=== PATIENT | male | born 1955 | race Caucasian/White ===

== ENCOUNTER 2017-04-13 07:56 | Emergency (ER) | payer SELFPAY ==
[2017-04-13 08:07] VITALS: BP 153/77; PULSE 68; TEMP 98.1; BMI 26.6
--- NOTE | 2017-04-13 09:08 | PDOC ---
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 Multiple sites noted, no surrounding erythema or induration. Past Medical History: Denies. Allergies: No known allergies Medications: On Family History: Non-contributory Social History: Denies smoking, alcohol use, or IVDU Review of Systems GENERAL/CONSTITUTIONAL: No fever or chills. No weakness. No weight change. HEAD, EYES, EARS, NOSE AND THROAT: No change in vision. No ear pain or discharge. No sore throat. CARDIOVASCULAR: No chest pain or shortness of breath. RESPIRATORY: No cough, wheezing, or hemoptysis. GASTROINTESTINAL: No nausea, vomiting, diarrhea or constipation. No rectal bleeding. GENITOURINARY: No dysuria, frequency, or change in urination. MUSCULOSKELETAL: No joint or muscle swelling or pain. No neck or back pain. SKIN: No rash or easy bruising. Raised, erythematous pruritic lesions to right lateral upper arm, axilla, right lateral torso. NEUROLOGIC: No headache, vertigo, loss of consciousness, or loss of sensation. HEMATOLOGIC/LYMPHATIC: No anemia, easy bleeding, or history of blood clots. No Lymphadenopathy ALLERGIC/IMMUNOLOGIC: No hives or skin allergy. No latex allergy. Physical Exam: GENERAL: The patient is awake, alert, and fully oriented, in no acute distress. EYES: Pupils equal, round and reactive to light, extraocular movements intact, sclera anicteric, conjunctiva clear. ENT: Ears normal, nares patent, oropharynx clear without exudates. Moist mucous membranes. No uvula deviation NECK: Normal range of motion, supple without lymphadenopathy, JVD, or masses. LUNGS: Breath sounds equal, clear to auscultation bilaterally. No wheezes, and no crackles. HEART: Regular rate and rhythm, normal S1 and S2 without murmur, rub or gallop. ABDOMEN: Soft, nontender, normoactive bowel sounds. No guarding, no rebound. No masses. No bruising or abrasions MUSCULOSKELETAL: Normal range of motion, no edema. No clubbing or cyanosis. No cords, erythema, or tenderness. No CVA Tenderness with fist. NEUROLOGICAL: Cranial nerves II through XII grossly intact. Normal speech, normal gait. SKIN: Warm, Dry, normal turgor, erythematous pruritic, macular well, defines nadine with central punctum to the right lateral torso Past History - Past Medical History Allergies/Adverse Reactions: Allergies Allergy/AdvReac Type Severity Reaction Status Date / Time No Known Allergies Allergy Verified 04/13/17 08:04 Home Medications: Ambulatory Orders Hydrocortisone 2.5% Lotion [Hytone 2.5% Lotion -] 1 applic TP BID #1 bottle Other medical history: DENIES. - Psycho/Social/Smoking Cessation Hx Suicidal Ideation: No Smoking History: Current every day smoker Have you smoked in the past 12 months: Yes Number of Cigarettes Smoked Daily: 5 Information on smoking cessation initiated: No Hx Alcohol Use: No Drug/Substance Use Hx: No Substance Use Type: None *Physical Exam - Vital Signs Last Vital Signs Temp Pulse Resp BP Pulse Ox 98.1 F 68 19 153/77 98 04/13/17 08:04 04/13/17 08:04 04/13/17 08:04 04/13/17 08:04 04/13/17 08:04 Medical Decision Making - Medical Decision Making 04/13/17 15:59 A/P: Patient with multiple pruritic lesions, consistent with bug bites. Areas are not cellulitic. There is no surrounding erythema, warmth or induration. We' ll DC patient home on Hytone, follow-up with dermatology as needed. *DC/Admit/Observation/Transfer Diagnosis at time of Disposition: Rash and nonspecific skin eruption - Discharge Dispostion Disposition: HOME Condition at time of disposition: Good Admit: No - Prescriptions Prescriptions: Hydrocortisone 2.5% Lotion [Hytone 2.5% Lotion -] 1 applic TP BID #1 bottle - Referrals Referrals: Mumtaz Matson [Non Staff, Medical] - - Patient Instructions Additional Instructions: Please keep area clean and dry. Apply lotion twice a day as needed if symptoms get increased red, warm, if fever develops, or any other concerns return to ER
== END 2017-04-13 09:17 | disposition home or self-care (01) ==
LOC: JERFT 07:56
DX: R21 Rash and other nonspecific skin eruption (principal)
CPT/HCPCS: 99281-25

== ENCOUNTER 2018-10-09 08:03 | Emergency (ER) | payer SELFPAY ==
[2018-10-09 08:20] VITALS: BP 151/76; PULSE 76; TEMP 98.3; BMI 26.6
--- NOTE | 2018-10-09 08:48 | PDOC ---
History of Present Illness - General Chief Complaint: Urinary Problem Stated Complaint: URINARY PROBLEM Time Seen by Provider: 10/09/18 08:35 History Source: Patient Exam Limitations: No Limitations - History of Present Illness Travel History: No Initial Comments: 10/09/18 09:43 came to emergency department for evaluation of urinary frequency. States onset was yesterday and had to get up 6-7 times last night to urinate. Denies pain or burning with void, denies any bleeding, denies any lesions or ulcerations to penis or scrotum. Has had no problems with urine or frequency in the past. No history of diabetes or STDs. Timing/Duration: reports: getting worse Quality: reports: mild, moderate Abdominal Pain Onset Location: reports: suprapubic Pain Radiation: reports: no radiation Activities at Onset: reports: none Alleviating Factors: improves with: None Past History - Travel Traveled outside of the country in the last 30 days: No Close contact w/someone who was outside of country & ill: No - Past Medical History Allergies/Adverse Reactions: Allergies Allergy/AdvReac Type Severity Reaction Status Date / Time No Known Allergies Allergy Verified 10/09/18 08:17 Home Medications: Ambulatory Orders NK [No Known Home Medication] 10/09/18 COPD: No CHF: No - Immunization History Immunization Up to Date: Yes - Suicide/Smoking/Psychosocial Hx Smoking History: Never smoked Have you smoked in the past 12 months: Yes Number of Cigarettes Smoked Daily: 5 Information on smoking cessation initiated: No Hx Alcohol Use: No Drug/Substance Use Hx: No Substance Use Type: None Review of Systems - Review of Systems Able to Perform ROS?: Yes Is the patient limited [place] proficient: Yes Constitutional: Yes: Symptoms Reported, See HPI, Malaise HEENTM: Yes: Symptoms Reported, See HPI Respiratory: Yes: Symptoms reported : Yes: Symptoms Reported, See HPI, Frequency, Urgency. No: Burning, Dysuria, Discharge, Flank Pain, Hematuria, Testicular Mass, Testicular Swelling Musculoskeletal: No: Symptoms Reported Integumentary: No: Symptoms Reported Neurological: No: Symptoms reported All Other Systems: Reviewed and Negative *Physical Exam - Vital Signs Last Vital Signs Temp Pulse Resp BP Pulse Ox 98.3 F 76 15 151/76 98 10/09/18 08:17 10/09/18 08:17 10/09/18 08:17 10/09/18 08:17 10/09/18 08:17 - Physical Exam General Appearance: Yes: Nourished, Appropriately Dressed. No: Apparent Distress HEENT: positive: NICKY, Normal ENT Inspection, TMs Normal, Pharynx Normal Neck: positive: Supple. negative: Tender Respiratory/Chest: positive: Lungs Clear Gastrointestinal/Abdominal: positive: Normal Bowel Sounds, Tender (mild suprapubic tenderness. ), Soft. negative: Distended, Guarding, Rebound Musculoskeletal: negative: CVA Tenderness (R), CVA Tenderness (L) Extremity: positive: Normal Capillary Refill, Normal Inspection, Normal Range of Motion Integumentary: positive: Normal Color, Dry, Warm Neurologic: positive: therapy teacher II-XII NML intact, Fully Oriented, Alert, Normal Mood/ Affect, Normal Response, Motor Strength 5/5 Moderate Sedation - Procedure Monitoring Vital Signs: Procedure Monitoring Vital Signs Temperature 98.3 F 10/09/18 08:17 Pulse Rate 76 10/09/18 08:17 Respiratory Rate 15 10/09/18 08:17 Blood Pressure 151/76 10/09/18 08:17 O2 Sat by Pulse Oximetry (%) 98 10/09/18 08:17 *DC/Admit/Observation/Transfer Diagnosis at time of Disposition: Urinary frequency - Discharge Dispostion Disposition: HOME Condition at time of disposition: Stable Decision to Admit order: No - Referrals Referrals: Lam Gonzalez MD [Staff Physician] - - Patient Instructions Additional Instructions: Rest, drink lots of fluids: Teas, water, soups Avoid contact with others until fevers and symptoms resolved Lots of handwashing and good hygiene Continue [id number] medications for symptomatic relief Tylenol or Motrin for fever and pain Followup with private physician in one week for repeat urinalysis/reevaluation See Urologist for specialized testing for prostate and bladder. Return to emergency department for worsened symptoms, fevers, dehydration - Post Discharge Activity Forms/Work/School Notes: Back to Work
[2018-10-09 09:05] LABS: URINE APPEARANCE CLEAR; URINE BILIRUBIN NEGATIVE (<2.0 mg/dL); URINE COLOR STRAW; URINE GLUCOSE (UA) NEGATIVE (NEGATIVE); URINE KETONE NEGATIVE (NEGATIVE); URINE LEUK ESTERASE NEGATIVE (NEGATIVE); URINE NITRITE NEGATIVE (NEGATIVE); URINE PROTEIN NEGATIVE (NEGATIVE); URINE UROBILINOGEN NEGATIVE mg/dL (0.2-1.0)
== END 2018-10-09 09:37 | disposition home or self-care (01) ==
LOC: JER 08:03 → JERFT 08:03
DX: R35.0 Frequency of micturition (principal)
CPT/HCPCS: 81003; 87086; 99281-25

== ENCOUNTER 2019-01-02 12:30 | Emergency (ER) | payer SELFPAY ==
[2019-01-02 12:36] VITALS: BP 139/76; PULSE 89; TEMP 98.5; BMI 26.6
--- NOTE | 2019-01-02 13:17 | PDOC ---
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 He has blurry vision and tearing. Past History - Past Medical History Allergies/Adverse Reactions: Allergies Allergy/AdvReac Type Severity Reaction Status Date / Time No Known Allergies Allergy Verified 01/02/19 12:35 Home Medications: Ambulatory Orders Tobramycin 0.3% Ophth Soln [Tobrex Ophthalmic Solution -] 1 drop OU Q4HWA #1 bottle 01/02/19 COPD: No CHF: No - Immunization History Immunization Up to Date: Yes - Suicide/Smoking/Psychosocial Hx Smoking History: Never smoked Have you smoked in the past 12 months: Yes Number of Cigarettes Smoked Daily: 5 Hx Alcohol Use: No Drug/Substance Use Hx: No Substance Use Type: None Review of Systems - Review of Systems Constitutional: No: Fever HEENTM: Yes: Blurred Vision, Tearing *Physical Exam - Vital Signs Last Vital Signs Temp Pulse Resp BP Pulse Ox 98.5 F 89 18 139/76 99 01/02/19 12:32 01/02/19 12:32 01/02/19 12:32 01/02/19 12:32 01/02/19 12:32 - Physical Exam Comments: 01/02/19 13:14 HEAD: NC/AT EYES: Conjuntiva injected. Anesthetized with tetracaine then stained with fluorescein reexamined no identification of foreign body or corneal abrasion Ears: Canals and TM's normal NOSE: No d/c NEUROLOGIC: No gross sensory or motor deficits, NVID SKIN: Normal color and temperature no lesions or rashes Medical Decision Making - Medical Decision Making 01/02/19 13:14 I suspect and expelled foreign body this is a conjunctivitis I do not appreciate a corneal abrasion. I will place month tobramycin drops and have him follow-up with ophthalmology *DC/Admit/Observation/Transfer Diagnosis at time of Disposition: Acute conjunctivitis of both eyes - Discharge Dispostion Disposition: HOME Condition at time of disposition: Stable Decision to Admit order: No - Referrals Referrals: Merari Fuller MD [Staff Physician] - - Patient Instructions Printed Discharge Instructions: Conjunctivitis, DI for Conjunctivitis Additional Instructions: Please use the antibiotic drops as directed. Return to the emergency room for worsening symptoms and follow-up with ophthalmology in one to 2 days for further evaluation and treatment options - Post Discharge Activity
== END 2019-01-02 13:37 | disposition home or self-care (01) ==
LOC: JERFT 12:30
DX: H10.33 Unspecified acute conjunctivitis, bilateral (principal)
CPT/HCPCS: 99281-25

== ENCOUNTER 2019-01-20 11:36 | Emergency (ER) | payer SELFPAY ==
[2019-01-20 11:45] VITALS: BP 155/60; PULSE 77; TEMP 98.6; BMI 34.3
[2019-01-20] MEDS ORDERED: IBUPROFEN 600 MG TABLET (FP) PO ONE (12:34)
--- NOTE | 2019-01-20 14:02 | PDOC ---
History of Present Illness - General Chief Complaint: Pain, Acute Stated Complaint: RT KNEE PAIN Time Seen by Provider: 01/20/19 12:14 History Source: Patient - History of Present Illness Initial Comments: 01/20/19 13:28 63 year old male c/o Right knee pain. 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 Patient has been rubbing Capsacin oil to the site no improvement in pain. Patient reports pain in movement. Past History - Past Medical History Allergies/Adverse Reactions: Allergies Allergy/AdvReac Type Severity Reaction Status Date / Time No Known Allergies Allergy Verified 01/02/19 12:35 Home Medications: Ambulatory Orders Ibuprofen 600 mg PO QID PRN #20 tablet 01/20/19 COPD: No CHF: No - Immunization History Immunization Up to Date: Yes - Suicide/Smoking/Psychosocial Hx Smoking History: Current every day smoker Have you smoked in the past 12 months: Yes Number of Cigarettes Smoked Daily: 5 Information on smoking cessation initiated: No Hx Alcohol Use: No Drug/Substance Use Hx: No Substance Use Type: None Review of Systems - Review of Systems Able to Perform ROS?: Yes Is the patient limited [place] proficient: No Constitutional: Yes: Loss of Appetite Musculoskeletal: Yes: Other (right knee pain) *Physical Exam - Vital Signs Last Vital Signs Temp Pulse Resp BP Pulse Ox 98.6 F 77 16 155/60 99 01/20/19 11:41 01/20/19 11:41 01/20/19 11:41 01/20/19 11:41 01/20/19 11:41 - Physical Exam General Appearance: Yes: Appropriately Dressed Musculoskeletal: positive: Normal Inspection, Other (able leg raise ) Extremity: positive: Normal Capillary Refill, Normal Inspection, Normal Range of Motion Integumentary: positive: Normal Color, Dry, Warm Neurologic: positive: Fully Oriented, Alert, Normal Mood/Affect ED Treatment Course - RADIOLOGY Radiology Studies Ordered: Category Date Time Status KNEE 2 POS-RIGHT [RAD] Stat Radiology 01/20/19 12:32 Taken - Medications Given in the ED: ED Medications Discontinued Medications Generic Name Dose Route Start Last Admin Trade Name Freq PRN Reason Stop Dose Admin Ibuprofen 600 mg 01/20/19 12:34 01/20/19 12:39 Motrin - PO 01/20/19 12:35 600 mg ONCE ONE Administration Progress Note - Progress Note Progress Note: A: right knee pain P: Nsaids xray *DC/Admit/Observation/Transfer Diagnosis at time of Disposition: Knee pain, right anterior Joint effusion of knee Qualifiers: Laterality: right Qualified Code(s): M25.461 - Effusion, right knee - Discharge Dispostion Disposition: HOME Condition at time of disposition: Stable - Prescriptions Prescriptions: Ibuprofen 600 mg PO QID PRN #20 tablet PRN Reason: Pain - Referrals Referrals: Hernandez Mccann DO [Staff Physician] - - Patient Instructions Printed Discharge Instructions: DI for Knee Effusion Additional Instructions: take ibuprofen every 6 hours as needed for pain follow up with an orthopedic as soon as possible. rest, elevate your legs/ Additional Instructions: * Please call your personal physician to report your Emergency Department visit and to report your progress, if any. * If there is no improvement in symptoms in 2 days call your physician. * Return to the Emergency Department for any worsening symptoms. - Post Discharge Activity Forms/Work/School Notes: Back to Work
== END 2019-01-20 14:53 | disposition home or self-care (01) ==
LOC: JERFT 11:36
DX: M25.461 Effusion, right knee (principal); M25.561 Pain in right knee; X50.0XXA Overexertion from strenuous movement or load, initial encounter; Y93.H3 Activity, building and construction; Y92.69 Other specified industrial and construction area as the place of occurrence of the external cause; Y99.0 Civilian activity done for income or pay
CPT/HCPCS: 73560-TC-RT-FY; 99281-25

== ENCOUNTER 2019-01-30 11:08 | Emergency (ER) | payer SELFPAY ==
[2019-01-30 11:16] VITALS: BP 174/80; PULSE 70; TEMP 97.5; BMI 29.5
[2019-01-30] MEDS ORDERED: KETOROLAC TROMETHAMINE 60 MG/2 ML VIAL IM ONE (11:48)
[2019-01-30] MEDS ORDERED: KETOROLAC TROMETHAMINE 60 MG/2 ML VIAL ONE (11:55)
--- NOTE | 2019-01-30 12:44 | PDOC ---
History of Present Illness - General Chief Complaint: Edema Stated Complaint: RT LEG PAIN Time Seen by Provider: 01/30/19 11:26 History Source: Patient - History of Present Illness Occurred: reports: last week Severity: Yes: severe Lower Extremity Pain Location: right: other (R thigh) Past History - Past Medical History Allergies/Adverse Reactions: Allergies Allergy/AdvReac Type Severity Reaction Status Date / Time No Known Allergies Allergy Verified 01/30/19 11:13 Home Medications: Ambulatory Orders Ibuprofen 600 mg PO QID PRN #20 tablet 01/20/19 COPD: No CHF: No - Immunization History Immunization Up to Date: Yes - Suicide/Smoking/Psychosocial Hx Smoking History: Never smoked Have you smoked in the past 12 months: Yes Number of Cigarettes Smoked Daily: 5 Hx Alcohol Use: No Drug/Substance Use Hx: No Substance Use Type: None Review of Systems - Review of Systems Constitutional: No: Chills, Fever Respiratory: No: Shortness of Breath Cardiac (ROS): No: Chest Pain, Palpitations *Physical Exam - Vital Signs Last Vital Signs Temp Pulse Resp BP Pulse Ox 97.5 F L 70 18 174/80 H 99 01/30/19 11:14 01/30/19 11:14 01/30/19 11:14 01/30/19 11:14 01/30/19 11:14 - Physical Exam General Appearance: Yes: Appropriately Dressed, Mild Distress HEENT: positive: Normal Voice Neck: positive: Supple Respiratory/Chest: positive: Lungs Clear, Normal Breath Sounds. negative: Respiratory Distress Cardiovascular: positive: Regular Rate, S1, S2 Gastrointestinal/Abdominal: positive: Soft. negative: Tender Extremity: positive: Other (significant varicosities to RLE, most notably to medial R thigh where there is significant venous enorgement w/ ttp, no erythema or induration) Integumentary: positive: Dry, Warm Neurologic: positive: Fully Oriented, Alert, Normal Mood/Affect ED Treatment Course - RADIOLOGY Radiology Studies Ordered: Category Date Time Status DUPLEX VASCUL US-1 LEG [US] Stat Ultrasound 01/30/19 11:48 Completed - Medications Given in the ED: ED Medications Discontinued Medications Generic Name Dose Route Start Last Admin Trade Name Freq PRN Reason Stop Dose Admin Ketorolac Tromethamine 60 mg 01/30/19 11:48 01/30/19 11:57 Toradol Injection - IM 01/30/19 11:49 60 mg ONCE ONE Administration Medical Decision Making - Medical Decision Making 01/30/19 12:43 63 yo M, varicosity to b/l LE, R>>L x 3 years, here w/ severe pain and swelling to R thigh where patient states he also has varicosities. 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 Taking tylenol w/ no relief. No significant calf pain and no chest pain, shortness of breath or palpitations. Of note, pt was seen in ED on 01/20/19 with complaint of R knee pain after heavy lifting. He was found to have effusion to right knee on x-ray. Denies any pain or swelling to the right knee at this time See exam Painful varicose veins No e/o superficial phlebitis and US neg for superficial/deep thrombus Dose of pain meds here -dc w/ f/u in H as pt currently does not have insurance, told he will need to see a vascular specialist for further management of varicosities -motrin for pain as needed *DC/Admit/Observation/Transfer Diagnosis at time of Disposition: Varicosities of leg Qualifiers: Varicose vein complication: pain Laterality: right Qualified Code(s): I83.811 - Varicose veins of right lower extremity with pain - Discharge Dispostion Disposition: HOME Condition at time of disposition: Improved - Referrals - Patient Instructions Printed Discharge Instructions: Varicose Veins Additional Instructions: Usted tiene nina condicin llamada venas varicosas. Por favor, edna ms abajo para ms informmichelle. El ultrasonido realizado hoy no mostr cogulos en guera venas superficiales o profundas Tendr que ser visto por un mdico vascular para un tratamiento posterior. Dado que no tienes seguro. Queremos seguir con la atencin primaria en [facility] al [phone] Lo gato por precios significativamente reducidos y pueden ayudar a organizar el seguimiento con un mdico vascular. Mientras tanto, tome Motrin sin receta. Puede temitope hasta 800 mg cada 6 horas segn sea necesario. Asegrese de leer a continuacin para nina mayor administracin en el hogar, keke la elevacin de guera piernas, etc. Qu es la enfermedad de las venas? La enfermedad de las venas es un padecimiento que puede afectar las venas de las piernas y causar dolor o inflamacin, venas varicosas o llagas abiertas. Las venas varicosas son venas inflamadas y retorcidas. La enfermedad de las venas se produce cuando las venas de las piernas no funcionan keke deberan. En condiciones normales, las venas de las piernas transportan polo desde las piernas hacia el corazn. En rouse interior las venas tienen vlvulas que permiten que la circulacin de la polo vaya en nina william direccin (hacia el corazn). Estas vlvulas se abren para permitir que la polo circule hacia el corazn y se cierran para evitar que vuelva a circular hacia las piernas, andres cuando las vlvulas estn daadas o no funcionan gabriel, se puede producir esta enfermedad, la cual provoca que la polo se acumule en las piernas. Es particularmente probable que la polo se acumule en las piernas si la persona pasa mucho tiempo sentada o de pie, sin caminar. Qu padecimientos pueden causar la enfermedad de las venas? Las causas de la enfermedad de las venas pueden ser las siguientes: ?Un cogulo en nina vena de la pierna ?Nina lesin en la pierna ?Quedar embarazada, especialmente ms de nina vez [place] provoca un cambio en los niveles hormonales que puede debilitar las mckeon de las venas. ?Aumento de peso La enfermedad de las venas tambin puede ser hereditaria. Cules son los sntomas de la enfermedad de las venas? Las personas con enfermedad de las venas pueden tener los siguientes sntomas: ?Dolor en las piernas, o sensacin de cansancio o pesadez en las piernas, especialmente al final del da. ?Venas inflamadas Las araas son venas pequeas de las piernas que estn inflamadas (imagen 1). Las venas varicosas son venas ms grandes de las piernas que estn inflamadas y retorcidas (imagen 2). ?Inflamacin en las pantorrillas o los tobillos (figura 1) Se pueden sufrir inflamaciones al final del da o todo el tiempo. ?Cambios de color en la piel La piel puede tornarse balbir o balbir amarronada. Con frecuencia, los cambios de color en la piel suceden jeremy alrededor del tobillo. ?Llagas abiertas, tambin llamadas lceras venosas Estas suelen encontrarse en el tobillo y pueden ser dolorosas y supurar. Existe nian prueba para detectar la enfermedad de las venas? S. Rouse mdico o enfermero realizar un examen para revisar guera piernas y es posible que amarjit daniella nina prueba llamada ultrasonido. Con un ultrasonido se puede verificar si las vlvulas de las piernas estn funcionando gabriel y yogeshbin se puede edna si alguna de las venas de las piernas est bloqueada. Qu puedo hacer para aliviar mis sntomas? Para reducir la inflamacin, puede hacer lo siguiente: ?Camine y trate de no permanecer sentado o de pie en un solo lugar acacia mucho tiempo ?Eleve las piernas 3 o 4 veces al da, acacia 30 minutos cada vez ?Daniella ejercicios para apuntar los dedos de los pies y los pies hacia arriba y hacia abajo varias veces al da Para tratar la sequedad o comezn de la piel, puede hacer lo siguiente: ?Lvese las piernas todos los dougherty con un limpiador suave. No use jabn normal, ya que puede resecarle an ms la piel. ?Aplquese nina crema humectante o ungento sin perfume mientras la piel est hmeda. La jalea de petrleo es efectiva. Consulte a rouse mdico o enfermero antes de usar cualquier otro tipo de crema o ungento, ya que algunos pueden causar sarpullidos. Si tiene problemas graves en la piel, el mdico o enfermero podra sugerirle un ungento especial, nina medicina o vendajes. [employer] se trata la enfermedad de las venas? Los mdicos pueden utilizar diferentes tratamientos para tratar los sntomas y reducir la inflamacin, keke por ejemplo: ?Medias, vendas o dispositivos especiales: Las medias compresivas son medias especiales que se ajustan al tobillo y la pierna. Si el mdico o enfermero le recomienda que las use, le dir qu tipo debe usar y stepdown nurse se las debe colocar (figura 2 y tabla 1). Las vendas compresivas son capas de vendas con las que se envuelve la pierna. Nina bomba compresiva es un dispositivo que se ajusta alrededor de la pierna y la comprime cada cierta cantidad de minutos. ?Vendas especiales para colocar sobre las llagas abiertas y ayudar a que sanen. ?Medicinas Los mdicos pueden usar distintos tipos de medicinas para tratar los diversos sntomas. Por ejemplo, las personas que no pueden usar medias o vendas compresivas podran probar medicinas para que las venas funcionen mejor. Quienes tienen infecciones en la piel podran tener que temitope antibiticos, y es posible que quienes sufren comezn necesiten usar cremas o ungentos recetados. ?Procedimientos Los mdicos pueden realizar procedimientos si otros tratamientos no funcionan. Por ejemplo, pueden sacar y destruir las venas daadas para que dejen de llenarse de polo. Print Language: SWEDISH - Post Discharge Activity
== END 2019-01-30 13:07 | disposition home or self-care (01) ==
LOC: JERFT 11:08
PROC: 3E0233Z Introduction of Anti-inflammatory into Muscle, Percutaneous Approach (ICD-10-PCS; principal; 2019-01-30)
DX: I83.811 Varicose veins of right lower extremity with pain (principal); Z87.891 Personal history of nicotine dependence
CPT/HCPCS: 93971-TC; 99281-25

== ENCOUNTER 2021-01-18 06:24 | Emergency (ER) | payer OTHER ==
[2021-01-18 06:52] VITALS: TEMP 97.8; BMI 25.8
[2021-01-18] MEDS ORDERED: LIDOCAINE 5% TOPICAL PATCH TP ONE (07:47)
[2021-01-18] MEDS ORDERED: CYCLOBENZAPRINE HCL 5 MG TABLET PO ONE (07:47)
[2021-01-18] MEDS ORDERED: KETOROLAC TROMETHAMINE 15 MG/ML VIAL IM ONE (07:47)
[2021-01-18] MEDS ORDERED: CYCLOBENZAPRINE HCL 10 MG TABLET (FP) ONE (08:13)
[2021-01-18] MEDS ORDERED: LIDOCAINE 5% TOPICAL PATCH ONE (08:13)
[2021-01-18] MEDS ORDERED: KETOROLAC TROMETHAMINE 15 MG/ML VIAL ONE (08:13)
[2021-01-18 09:04] VITALS: BP 143/75; PULSE 62
[2021-01-18] MEDS ORDERED: LIDOCAINE PATCH REMOVAL MC ONE (22:00)
== END 2021-01-18 09:04 | disposition home or self-care (01) ==
LOC: JER 06:24
PROC: 3E0233Z Introduction of Anti-inflammatory into Muscle, Percutaneous Approach (ICD-10-PCS; principal; 2021-01-18)
DX: M54.9 Dorsalgia, unspecified (principal)
CPT/HCPCS: 99284-25

== ENCOUNTER 2021-02-03 15:11 | Emergency (ER) | payer OTHER ==
[2021-02-03 15:27] VITALS: BP 164/88; PULSE 69; TEMP 98.6; BMI 27.3
[2021-02-03] MEDS ORDERED: LIDOCAINE 5% TOPICAL PATCH TP ONE (16:07)
[2021-02-03] MEDS ORDERED: LIDOCAINE 5% TOPICAL PATCH ONE (16:11)
[2021-02-04] MEDS ORDERED: LIDOCAINE PATCH REMOVAL MC SCH (04:00)
== END 2021-02-03 16:59 | disposition home or self-care (01) ==
LOC: JER 15:11
DX: B02.9 Zoster without complications (principal)
CPT/HCPCS: 93005; 93010; 99284-25

== ENCOUNTER 2022-03-22 09:30 | Emergency (ER) | payer OTHER ==
[2022-03-22 09:40] VITALS: BP 146/76; PULSE 72; TEMP 97.8; BMI 26.6
[2022-03-22] MEDS ORDERED: KETOROLAC TROMETHAMINE 30 MG/1 ML VIAL IM ONE (10:27)
[2022-03-22] MEDS ORDERED: KETOROLAC TROMETHAMINE 30 MG/1 ML VIAL ONE (10:29)
== END 2022-03-22 12:25 | disposition home or self-care (01) ==
LOC: JERFT 09:30
PROC: 3E0233Z Introduction of Anti-inflammatory into Muscle, Percutaneous Approach (ICD-10-PCS; principal; 2022-03-22)
DX: S76.312A Strain of muscle, fascia and tendon of the posterior muscle group at thigh level, left thigh, initial encounter (principal); X50.0XXA Overexertion from strenuous movement or load, initial encounter
CPT/HCPCS: 73562-TC-LT-FY; 93971-TC; 99284-25